=== PATIENT | female | born 1975 | race Caucasian/White ===

== ENCOUNTER → 2020-10-12 14:09 | Outpatient (CLI) | payer OTHER, SELFPAY ==
--- NOTE | ~2020-10-12 | MM_ITS ---
EXAMINATION: MM screening [facility] BI w junior HISTORY: Screening TECHNIQUE: Craniocaudal and mediolateral oblique 3-D tomosynthesis images were obtained and synthetic 2-D images were generated. CAD analysis was submitted and interpreted. COMPARISON: Comparison to multiple prior studies sequentially, with oldest reviewed study dated 04/24. BREAST PARENCHYMAL COMPOSITION: Breast composed of scattered areas of fibroglandular density FINDINGS: Left breast calcifications are stable. There is no evidence of suspicious mass, calcificati on, or architectural distortion to suggest malignancy in either breast. There has been no suspicious interval change. IMPRESSION: 1. No mammographic evidence of malignancy. 2. Recommend routine screening mammography in one year. BI-RADS Category 1: Negative Reviewed, dictated and finalized at location A. CE NURSE
== END ==
PROVIDERS: PCP Family Medicine; Visit Provider Nurse Practitioner
DX: Z12.31 Encounter for screening mammogram for malignant neoplasm of breast (principal)
CPT/HCPCS: 77063; 77067

== ENCOUNTER 2020-12-13 12:23 | Emergency (ER) | payer OTHER, SELFPAY ==
--- NOTE | 2020-12-13 12:39 | ED.URI ---
HPI - URI/Sore Throat General Chief Complaint: Upper Respiratory Infection Stated Complaint: sore throat Time Seen by Provider: 12/13/20 12:39 Source: patient and RN notes reviewed Mode of arrival: ambulatory Limitations: no limitations History of Present Illness HPI Narrative: 45 year old female who presents to [facility] with complaints of sore throat and swollen neck glands since yesterday. Patient denies any fevers, chills or sweats, states no cough, nasal congestion or drainage and denies any ear pain or sinus pressure. She states that she thought she saw a pus pocket on her uvula also. Patient reports that she has not taken any OTC medications for her symptoms or for discomfort. MD elicited complaint: sore throat Onset (ago): day(s) (1) Consistency: progressively worsening Severity: mild Pain scale (0-10): 3 Able to tolerate fluids by mouth: Yes Exacerbating factors: swallowing Relieving factors: nothing Associated symptoms: sore throat and other (enlarged lymph nodes neck) Treatments prior to arrival: none Related Data Home Medications Medication Instructions Recorded Confirmed ascorbic acid-collagen [Collagen cap PO 12/13/20 Plus Vitamin C] chlorthalidone 12/13/20 potassium chloride meq PO 12/13/20 Allergies Allergy/AdvReac Type Severity Reaction Status Date / Time No Known Allergies Allergy Unverified 03/15/19 07:21 Review of Systems Review of Systems: Narrative: CONSTITUTIONAL: Denies fever, chills, or sweats. EYES: Denies visual changes, redness, or discharge. ENT: Denies rhinorrhea, congestion, positive for sore throat, no otalgia. CARDIOVASCULAR: Denies chest pain, palpitations, or edema. RESPIRATORY: Denies cough or dyspnea. GASTROINTESTINAL: Denies abdominal pain, nausea, vomiting, or diarrhea. GENITOURINARY: Denies dysuria or hematuria. SKIN: Denies rash or itching. MUSCULOSKELETAL: Denies back pain, joint pain, or myalgia. NEUROLOGIC: Denies headache, numbness, or weakness. PSYCHIATRIC: Denies anxiety or depression. All systems reviewed & are unremarkable except as noted in HPI and below PMFSH Past Medical History Medical History (Updated 12/13/20 @ 13:04 by Ashwini Coto NP) Hypertension hemorrhage Thyroid enlargement Surgical History Surgical History (Updated 12/13/20 @ 12:45 by sAhwini Coto NP) Hx of cholecystectomy Family History Family History Mother Hypertension Father Family history of heart disease in male family member before age 55 Other Family history of arthritis Family history of cardiovascular disease Family history of mental disorder Social History Social History (Updated 12/13/20 @ 12:45 by Ashwini Coto NP) Smoking status: Never smoker Alcohol intake: current Substance use: never Living arrangements: with family Gender identity (if verbalized by the patient): Female Comments At time of signature, agree with nursing past medical, surgical, social and family history. There is no relevant family history pertinent to the presenting complaint Exam Narrative: Exam Narrative: GENERAL: Well-appearing, well-nourished, and in no acute distress. HEAD: Normocephalic, atraumatic. EYES: PERRLA and EOMI. ENT: Nares clear, no rhinorrhea or epistaxis. Mucous membranes moist.TM's normal with good light reflex, throat red with no exudates or lesions, tonsils are enlarged and swollen with uvula red and swollen but midline, no trismus NECK: Supple.lymphadenopathy with tenderness on palpation CHEST: Clear to auscultation. No respiratory distress.SAO2 100% on room air HEART: Regular rate and rhythm. No murmur heard. Normal peripheral pulses. ABDOMEN: Soft, nontender, nondistended, normal active bowel sounds. EXTREMITIES: Normal range of motion. No edema. SKIN: Warm, dry, no rash. NEURO: No focal deficits. Alert and oriented x3. MDM - URI/Sore Throat Differential Diagnosis
[2020-12-13 12:42] VITALS: BP 150/84; PULSE 93; RESP 20; TEMP 36.3; O2SAT 100
== END 2020-12-13 12:59 | disposition home or self-care (01) ==
PROVIDERS: Emergency Provider Registered Nurse; PCP Family Medicine
DX: J02.0 Streptococcal pharyngitis (principal); I10 Essential (primary) hypertension
CPT/HCPCS: 87880; 99213; G0463

== ENCOUNTER → 2021-05-12 16:05 | Outpatient (CLI) | payer OTHER, SELFPAY ==
--- NOTE | ~2021-05-12 | US_ITS ---
EXAMINATION: US thyroid EXAM DATE: 05/12/2021 16:20 INDICATION: Nontoxic single thyroid nodule. TECHNIQUE: Multiple grayscale and Doppler images of the thyroid were obtained (by a technologist who performed the scan) and subsequently reviewed. Individual nodules and recommendations may be reporte d in accordance with TI-RADS system as designated by the 2017 ACR White Paper TI-RADS committee. Comp arison is made to prior examination from 03/28/2018, 2017. FINDINGS: The right there are lobe measures 5.7 x 1.8 x 1.4 cm, the left measuring 6.2 x 2.4 x 1.9 cm. There is moderately diffusely heterogeneous thyroid echogenicity with scattered nodules. Largest nodules are in the left thyroid lobe, category TR 3 and 4. Largest category TR 4 nodule measu res 1.6 x 1.3 x 2.0 cm (previously dimensions obtained at 1.8 x 1.4 x 2.4 cm). This is either stable or decreased in size. IMPRESSION: Multinodular goiter, likely benign. Reviewed, dictated and finalized at location B.
== END ==
PROVIDERS: PCP Family Medicine; Visit Provider Nurse Practitioner
DX: E04.2 Nontoxic multinodular goiter (principal)
CPT/HCPCS: 76536

== ENCOUNTER → 2021-10-14 15:56 | Outpatient (CLI) | payer OTHER, SELFPAY ==
--- NOTE | ~2021-10-14 | MM_ITS ---
EXAMINATION: MM screening [facility] BI w junior HISTORY: Screening TECHNIQUE: Craniocaudal and mediolateral oblique 3-D tomosynthesis images were obtained and synthetic 2-D images were generated. CAD analysis was submitted and interpreted. COMPARISON: Comparison to multiple prior studies sequentially, with oldest reviewed study dated 10/06. BREAST PARENCHYMAL COMPOSITION: Breast composed of scattered areas of fibroglandular density. FINDINGS: There is no evidence of suspicious mass, calcification, or architectural distortion to sugg est malignancy in either breast. There has been no suspicious interval change. IMPRESSION: 1. No mammographic evidence of malignancy. 2. Recommend routine screening mammography in one year. BI-RADS Category 1: Negative Reviewed, dictated and finalized at location A. ROD MAKER
== END ==
PROVIDERS: PCP Family Medicine; Visit Provider Nurse Practitioner
DX: Z12.31 Encounter for screening mammogram for malignant neoplasm of breast (principal)
CPT/HCPCS: 77063; 77067

== ENCOUNTER 2022-09-07 16:27 | Emergency (ER) | payer OTHER, SELFPAY ==
[2022-09-07 17:09] VITALS: BP 130/68; PULSE 86; RESP 18; TEMP 36.6; O2SAT 100
--- NOTE | 2022-09-07 17:24 | ED.URI ---
HPI - URI/Sore Throat General Chief Complaint: Upper Respiratory Infection Stated Complaint: sorethroat Time Seen by Provider: 09/07/22 17:24 Source: patient Mode of arrival: ambulatory Limitations: no limitations History of Present Illness HPI Narrative: Iwlga[age]dnof[age]k-old female presents with complaint of sore throat, fatigue, headaches, body aches, chills for 3 days. states today her co-worker tested positive for strep. is concerned she may have strep. Denies nausea vomiting diarrhea. All systems reviewed and negative except as noted above. Related Data Home Medications Medication Instructions Recorded Confirmed lisinopril 20 1 tablet PO DAILY 09/07/22 09/07/22 mg-hydrochlorothiazide 25 mg tablet Allergies Allergy/AdvReac Type Severity Reaction Status Date / Time No Known Allergies Allergy Verified 09/07/22 17:28 Review of Systems Review of Systems: CONSTITUTIONAL: Denies fever . Reports chills, or sweats. EYES: Denies visual changes, redness, or discharge. ENT: Denies rhinorrhea, congestion. Reports sore throat. Denies otalgia. CARDIOVASCULAR: Denies chest pain, palpitations, or edema. RESPIRATORY: Denies cough or dyspnea. GASTROINTESTINAL: Denies abdominal pain, nausea, vomiting, or diarrhea. GENITOURINARY: Denies dysuria or hematuria. SKIN: Denies rash or itching. MUSCULOSKELETAL: Denies back pain, joint pain, or myalgia. NEUROLOGIC: Denies headache, numbness, or weakness. PSYCHIATRIC: Denies anxiety or depression. All other systems reviewed are negative, except as documented in HPI. [facility] Past Medical History Medical History (Updated 09/07/22 @ 17:41 by Nga Nogueira NP) Hypertension hemorrhage Thyroid enlargement Surgical History Surgical History (Updated 12/13/20 @ 12:45 by Ashwini Coto NP) Hx of cholecystectomy Family History Family History Mother Hypertension Father Family history of heart disease in male family member before age 55 Other Family history of arthritis Family history of cardiovascular disease Family history of mental disorder Social History Social History (Updated 12/13/20 @ 12:45 by Ashwini Coto NP) Smoking status: Never smoker Alcohol intake: current Substance use: never Gender identity (if verbalized by the patient): Female Comments At time of signature, agree with nursing past medical, surgical, social and family history. There is no relevant family history pertinent to the presenting complaint. Exam Narrative: GENERAL: This is a well-nourished, well-developed patient, in no apparent distress. HEAD: normocephalic, atraumatic. EYES: PERRL. Sclera clear/white. Vision is grossly intact. EARS: External ears normal, auditory canals clear and without drainage, TMs normal without perforation. Hearing grossly intact. NOSE: External nose normal with no obvious nasal discharge, nares without redness, no rhinorrhea. THROAT: Mucous membranes moist, posterior pharynx erythematous and swollen. No exudates or tonsillar swelling NECK: Neck supple, non-tender without lymphadenopathy, masses or thyromegaly. CARDIOVASCULAR: Regular rate and rhythm without murmurs, gallops, or rubs. RESPIRATORY: Clear to auscultation. Breath sounds equal bilaterally. No wheezes, rales, or rhonchi. SKIN: warm, Dry, intact with no suspicious lesions or rash, good texture and turgor. NEURO: awake, alert, and oriented to person, place and time. There were no obvious focal neurologic abnormalities. EXTREMITIES: No joint tenderness, effusion, or edema noted. Course Course Level of Care: Express Care Visit Vital Signs Vital signs: Vital Signs Temperature 36.6 C 09/07/22 17:09 Pulse Rate 86 09/07/22 17:09 Respiratory Rate 18 09/07/22 17:09 Blood Pressure 130/68 09/07/22 17:09 Pulse Oximetry 100 09/07/22 17:09 Oxygen Delivery Room Air 09/07/22 17:09
== END 2022-09-07 17:47 | disposition home or self-care (01) ==
PROVIDERS: Emergency Provider Nurse Practitioner Family; PCP Family Medicine
DX: J02.0 Streptococcal pharyngitis (principal); I10 Essential (primary) hypertension
CPT/HCPCS: 87880; 99213; G0463

== ENCOUNTER 2022-10-10 10:08 | Day surgery (SDC) | payer OTHER, SELFPAY ==
[2022-10-04 08:17] VITALS: BMI 30.4
--- NOTE | 2022-10-07 14:56 | PM.HPGS ---
History of Present Illness History of Present Illness Consent: Risks, benefits, and alternatives have been discussed and questions answered. Patient agrees to proceed with procedure. Chief complaint: Neoplasm Screening Narrative: Jewels Walton is a 47 year old female Was referred for colon cancer screening. Review of Systems Review of Systems: All systems reviewed & are unremarkable except as noted in HPI and below PMFSH Past Medical History Medical History Hypertension Hypokalemia hemorrhage Thyroid enlargement Surgical History Surgical History (Updated 12/13/20 @ 12:45 by Ashwini Coto NP) Hx of cholecystectomy Family History Family History Mother Hypertension Father Family history of heart disease in male family member before age 55 Other Family history of arthritis Family history of cardiovascular disease Family history of mental disorder Social History Social History (Updated 12/13/20 @ 12:45 by Ashwini Coto NP) Smoking status: Never smoker Alcohol intake: current Alcohol use details: socially Substance use: never Substance use type: does not use Living arrangements: with family Gender identity (if verbalized by the patient): Female Spiritual care concerns: No Meds Home Medications and Allergies Home Medications Medication Instructions Recorded Confirmed Type lisinopril 20 1 tablet PO DAILY 09/07/22 10/10/22 History mg-hydrochlorothiazide 25 mg tablet multivit with minerals-iron 18 1 tablet PO DAILY 10/04/22 10/10/22 History mg-folic ac 400 mcg-vit K 25 mcg tablet (Adults Multivitamin) Allergies Allergy/AdvReac Type Severity Reaction Status Date / Time No Known Allergies Allergy Verified 10/10/22 10:56 Exam Resp: Auscultation: clear to auscultation bilaterally Cardio: Rate: regular rate Rhythm: regular rhythm GI: GI Palp: Yes Soft to palpation and No Tenderness to palpation present (GI) Assessment and Plan Assessment and plan (1) Colon cancer screening: Code(s): Z12.11 - Encounter for screening for malignant neoplasm of colon Status: Acute Assessment and Plan: Colonoscopy with possible biopsy or polypectomy or cautery or injection of substances.
--- NOTE | 2022-10-10 07:06 | P.PNAN_ITS ---
Anes - Initial Pre Proc Eval Procedure: Operation Date: 10/10/22 12:15 Proposed Procedures p Screening Colonoscopy - Denis Mckenzie MD Date/Time: 10/10/22 07:06 Surgeon: Denis Mckenzie MD Pre Op Diagnosis: Neoplasm Screening Patient Data Age: 47 Gender: F Height: 1.55 m Weight: 73 kg Allergies Allergy/AdvReac Type Severity Reaction Status Date / Time No Known Allergies Allergy Verified 10/10/22 10:56 Home Medications Medication Instructions Recorded Confirmed Type lisinopril 20 1 tablet PO DAILY 09/07/22 10/10/22 History mg-hydrochlorothiazide 25 mg tablet multivit with minerals-iron 18 1 tablet PO DAILY 10/04/22 10/10/22 History mg-folic ac 400 mcg-vit K 25 mcg tablet (Adults Multivitamin) Patient hx anesthesia problems: none Family hx anesthesia problems: none Results Review: All pre-operative results and documents have been reviewed as part of the pre- operative evaluation. [facility] Past Medical History Medical History (Updated 10/10/22 @ 11:42 by Peter Guajardo DO) Hypertension Hypokalemia hemorrhage Thyroid enlargement Surgical History Surgical History (Updated 12/13/20 @ 12:45 by Ashwini Coto NP) Hx of cholecystectomy Family History Family History Mother Hypertension Father Family history of heart disease in male family member before age 55 Other Family history of arthritis Family history of cardiovascular disease Family history of mental disorder Social History Social History (Updated 12/13/20 @ 12:45 by Ashwini Coto NP) Smoking status: Never smoker Alcohol intake: current Alcohol use details: socially Substance use: never Substance use type: does not use Living arrangements: with family Gender identity (if verbalized by the patient): Female Spiritual care concerns: No Anes - Eval Final PreProcedure Day of Procedure 10/10/22 07:06 Patient weight: obese Heart: regular rate and rhythm Lungs: clear to auscultation Airway: Mallampati scale class II Neurological: alert and oriented Last oral intake: >/= 8 hours ASA classification: III Emergent: no Anesthetic plan: proceed Anesthesia type and monitoring: general GIVS and standard monitoring Results Review: All pre-operative results and documents have been reviewed as part of the pre- operative evaluation. Informed Consent: The patient's anesthetic plan and its attendant risks and benefits were discussed with the patient/family/POA. Questions were solicited and answers provided to the satisfaction of the patient/family/POA.
[2022-10-10 10:50] VITALS: BP 128/80; PULSE 99; RESP 20; TEMP 36.9; O2SAT 100
[2022-10-10] MEDS: LACTATED RINGERS 1,000 ML 150 ML IV CONT (11:09)
[2022-10-10 12:27] VITALS: BP 95/51; PULSE 76; RESP 22; O2SAT 99
[2022-10-10 12:37] VITALS: BP 98/53; PULSE 85; RESP 18; O2SAT 100
[2022-10-10 12:47] VITALS: BP 113/72; PULSE 72; RESP 18; O2SAT 100
--- NOTE | 2022-10-10 13:34 | WPDANESPN ---
Anes - Prog Note Post-Op Date/Time: 10/10/22 13:34 Cardiovascular status: normal Respiratory status: normal Airway patency: baseline Mental status: baseline Post-Op hydration status: normal Vital Signs: Last Vital Signs Temp 36.9 C 10/10/22 10:50 Pulse 72 10/10/22 12:47 Resp 18 10/10/22 12:47 BP 113/72 10/10/22 12:47 Pulse Ox 100 10/10/22 12:47 O2 Del Method Room Air 10/10/22 12:47 Pain Score (VAS): 0 Post-procedural complaints: none Patient Feedback: Patient satisfied with anesthetic care. Other Findings: Patient vital signs back to baseline. Patient denies nausea and vomiting. Patient's pain under control. Patient OK for discharge.
== END 2022-10-10 13:03 | disposition home or self-care (01) ==
PROVIDERS: PCP Family Medicine; Visit Provider Internal Medicine Gastroenterology
PROC: 0DJD8ZZ Inspection of Lower Intestinal Tract, Via Natural or Artificial Opening Endoscopic (ICD-10-PCS; CPT 45378; principal; 2022-10-10 12:15)
DX: Z12.11 Encounter for screening for malignant neoplasm of colon (principal)
CPT/HCPCS: 45378

== ENCOUNTER → 2022-10-21 12:26 | Outpatient (CLI) | payer OTHER, SELFPAY ==
--- NOTE | ~2022-10-21 | MM_ITS ---
EXAMINATION: MM screening oma BI w junior HISTORY: Screening TECHNIQUE: Craniocaudal and mediolateral oblique 3-D tomosynthesis images were obtained and synthetic 2-D images were generated. CAD analysis was submitted and interpreted. COMPARISON: Comparison to multiple prior studies sequentially, with oldest reviewed study dated 04/24. BREAST PARENCHYMAL COMPOSITION: There are scattered areas of fibroglandular density. FINDINGS: There is no evidence of suspicious mass, calcification, or architectural distortion to sugg est malignancy in either breast. There has been no suspicious interval change. IMPRESSION: 1. No mammographic evidence of malignancy. 2. Recommend routine screening mammography in one year. BI-RADS Category 1: Negative Reviewed, dictated and finalized at location B. TMENT COORDINATOR
== END ==
PROVIDERS: PCP Family Medicine; Visit Provider Nurse Practitioner
DX: Z12.31 Encounter for screening mammogram for malignant neoplasm of breast (principal)
CPT/HCPCS: 77063; 77067

== ENCOUNTER 2024-01-24 10:44 | Outpatient (CLI) | payer OTHER, SELFPAY ==
--- NOTE | ~2024-01-24 | MM_ITS ---
EXAMINATION: MM screening oma BI w junior HISTORY: Screening TECHNIQUE: Craniocaudal and mediolateral oblique 3-D tomosynthesis images were obtained and synthetic 2-D images were generated. CAD analysis was submitted and interpreted. COMPARISON: Comparison to multiple prior studies sequentially, with oldest reviewed study dated 12/2017. BREAST PARENCHYMAL COMPOSITION: Not dense: There are scattered areas of fibroglandular density. FINDINGS: There is no evidence of suspicious mass, calcification, or architectural distortion to sugg est malignancy in either breast. There has been no suspicious interval change. IMPRESSION: 1. No mammographic evidence of malignancy. 2. Recommend routine screening mammography in one year. BI-RADS Category 1: Negative Reviewed, dictated and finalized at location A.
== END 2024-01-24 10:45 ==
LOC: MICIMG 10:45
PROVIDERS: PCP Family Medicine; Visit Provider Nurse Practitioner
DX: Z12.31 Encounter for screening mammogram for malignant neoplasm of breast (principal)
CPT/HCPCS: 77063; 77067

== ENCOUNTER 2024-04-10 15:53 | Outpatient (CLI) | payer OTHER, SELFPAY ==
--- NOTE | ~2024-04-10 | XR_ITS ---
XR knee RT min 4V 04/10/2024 16:10 Indication: Right knee pain Procedure: 4 views right knee Comparison: No prior studies for comparison. Findings: No fracture, subluxation or dislocation. No significant joint effusion. No foreign bodies. Impression: 1: No acute bone or joint abnormality. Reviewed, dictated and finalized at location B. Impression: 1: No acute bone or joint abnormality.
== END 2024-04-10 15:54 | disposition home or self-care (01) ==
LOC: ANHIMG 15:54
PROVIDERS: PCP Family Medicine; Visit Provider Physician Assistant
DX: M25.561 Pain in right knee (principal)
CPT/HCPCS: 73564

== ENCOUNTER 2024-04-16 10:39 | Outpatient (CLI) | payer OTHER, SELFPAY ==
--- NOTE | ~2024-04-16 | CT_ITS ---
CT of the Abdomen: Indication: Liver disease Technique: 2.5 mm axial scans were obtained through the abdomen prior to and following intravenous a dministration of 100 cc of Omnipaque 350. Dose reduction technique was used on this scan by utilizing automated exposure control and iterative reconstruction technique. The dose-length product (DLP) was 1623.93 mGy-cm. Findings: Scans through the lung bases are unremarkable. Questionable very subtle minimally hypodense mass in the liver adjacent to the falciform ligament reg ion measuring up to 3.7 cm in maximum diameter, without significant hypervascular pattern (series 6 i mage 7 image 43, series 6 image 30 for example). The spleen, pancreas, adrenals and kidneys are withi n normal limits. Cholecystectomy clips are present. No evidence of aortic aneurysm. No lymphadenopat hy. Visualized bowel loops are unremarkable. No ascites. Impression: Questionable very subtle 3.7 cm hepatic mass, as above, indeterminate. Hepatic MR should be considere d to further assess. Reviewed, dictated and finalized at location M. Impression: Questionable very subtle 3.7 cm hepatic mass, as above, indeterminate. Hepatic MR should be considered to further assess.
[2024-04-16 10:58] LABS: Estimated Glomerular Filt Rate > 60
== END 2024-04-16 10:40 ==
LOC: MICIMG 10:40
PROVIDERS: PCP Family Medicine; Visit Provider Physician Assistant
DX: K76.9 Liver disease, unspecified (principal); R16.0 Hepatomegaly, not elsewhere classified
CPT/HCPCS: 74170; Q9967

== ENCOUNTER 2024-05-02 13:24 | Outpatient (CLI) | payer OTHER, SELFPAY ==
--- NOTE | ~2024-05-02 | MR_ITS ---
EXAMINATION: MR abdomen wo/w con DATE: 05/02/2024 14:31 INDICATION: Hepatomegaly TECHNIQUE: Magnetic resonance imaging (MRI) of the abdomen was performed without and with 15 mL Multi omar intravenous contrast. Sequences included coronal T2-weighted SS-FSE, coronal and axial FS 2D-F IESTA, axial STIR FSE, axial T2-weighted SS-FSE, axial T2-weighted FS SS-FSE, axial diffusion-weighte d SE, axial dual-echo T1-weighted FSPGR, and axial and coronal T1-weighted LAVA. Postcontrast axial T 1-weighted LAVA images were obtained in a time course. Postcontrast coronal T1-weighted LAVA images w ere obtained. COMPARISON: CT dated 04/16/2024 FINDINGS: Heart size is normal. No pericardial or pleural effusion. Liver measures 16 cm in length. There is a 2.1 x 2.1 cm region of focal hepatic steatosis at the confluence of the left and right sides of the p berry hepatis with decreased signal on the fat-saturated T1-weighted images and with signal dropout on the opposed phase images. No evident hypoe- or hyperenhancement relative to the surrounding liver. C holecystectomy clips at the gallbladder fossa. Spleen, pancreas, bilateral adrenal glands and kidneys are normal. Visualized portions of bowels are unremarkable with no bowel obstruction. No pathologica lly enlarged abdominal or upper pelvic lymphadenopathy. Mild lumbar spondylosis. Normal bone marrow s ignal. IMPRESSION: 1. 2.1 cm region of focal hepatic steatosis at the junction of the right and left iona hepatis which accounts for the hypodense hepatic lesion on prior CT. Reviewed, dictated and finalized at location B. IMPRESSION: 1. 2.1 cm region of focal hepatic steatosis at the junction of the right and le ft iona hepatis which accounts for the hypodense hepatic lesion on prior CT.
== END 2024-05-02 13:25 ==
PROVIDERS: PCP Family Medicine; Visit Provider Physician Assistant
DX: R16.0 Hepatomegaly, not elsewhere classified (principal); K76.0 Fatty (change of) liver, not elsewhere classified
CPT/HCPCS: 74183; A9577

== ENCOUNTER 2025-01-31 13:50 | Outpatient (CLI) | payer OTHER, SELFPAY ==
--- NOTE | ~2025-01-31 | MM_ITS ---
EXAMINATION: MM screening [facility] BI w junior HISTORY: Screening TECHNIQUE: Craniocaudal and mediolateral oblique 3-D tomosynthesis images were obtained and synthetic 2-D images were generated. CAD analysis was submitted and interpreted. COMPARISON: 01/24/2024 and dating back to 10/12/2020 BREAST PARENCHYMAL COMPOSITION: There are scattered areas of fibroglandular density. FINDINGS: Punctate calcifications are detected bilaterally, stable and benign in appearance. Stable parenchymal pattern without suspicious microcalcifications, architectural distortion, discrete masses or significant asymmetry. IMPRESSION: 1. No mammographic evidence of malignancy. 2. Recommend routine screening mammography in one year. BI-RADS Category 2: Benign finding(s). Reviewed, dictated and finalized at location A.
== END 2025-01-31 13:51 | disposition home or self-care (01) ==
LOC: MICIMG 13:51
PROVIDERS: PCP Family Medicine; Visit Provider Nurse Practitioner Women's Health
DX: Z12.31 Encounter for screening mammogram for malignant neoplasm of breast (principal)
CPT/HCPCS: 77063; 77067

== ENCOUNTER 2025-04-04 08:07 | Outpatient (CLI) | payer OTHER, SELFPAY ==
--- NOTE | ~2025-04-04 | DEXA_ITS ---
Bone Density Report Name: JI KLEIN Age: 50 Sex: Female Ethnicity: White Date of : 1975 Indication: screening for osteoporosis; Referring Provider: JORGE CALDERA Study: Bone densitometry was performed. Exam Date: April 04, 2025 Accession number: [id number] Bone Density: Region BMD T-score Z-score Classification AP Spine(L1-L4) 0.944 -0.9 -0.1 Normal Femoral Neck (Left) 0.760 -0.8 0.1 Normal Total Hip (Left) 0.881 -0.5 0.1 Normal Femoral Neck (Right) 0.756 -0.8 0.0 Normal Total Hip (Right) 0.830 -0.9 -0.4 Normal Total Hip Mean 0.855 -0.7 -0.2 Normal World Health Organization criteria for BMD impression classify patients as: Normal (T-score at or above -1.0), Osteopenia (T-score between -1.0 and -2.5), or Osteoporosis (T-score at or below -2.5). 10-year Fracture Risk: FRAX not reported because: Premenopausal woman All T-scores for Spine Total, Hip Total, Femoral Neck at or above -1.0 Clinical Information Provided by Patient: Has used the following medications: Vitamin D, Calcium, control pills in past Patient maximum height was 61 No regular weight bearing exercise Drinks caffeinated beverages Onset of menses at age 11 Premenopausal Number of children 2 Missed period for more than 6 months in a row Impression: The patient's bone mass is within expected range for age, gender and ethnicity. Discussion: BONE DENSITY IS WITHIN EXPECTED LIMITS FOR AGE, SEX AND RACE. Bone density is within expected limits for age, sex and race at all sites measured. The patient should follow a healthful lifestyle (good nutrition with adequate calcium and vitamin D, and appropriate weight-bearing exercise). Follow-Up: Consider repeating this study in 5 years or sooner if there is some new clinical indication. Reported by: ARIELA on 04/04/2025 8:46:00 AM. Reviewed, dictated and finalized at location A.
== END 2025-04-04 08:08 | disposition home or self-care (01) ==
PROVIDERS: PCP Family Medicine; Visit Provider Obstetrics & Gynecology Gynecology
DX: Z13.820 Encounter for screening for osteoporosis (principal)
CPT/HCPCS: 77080